=== PATIENT | female | born 1965 | race Two or more races ===

== ENCOUNTER 2024-07-13 05:57 | Day surgery (SDC) | payer OTHER, SELFPAY ==
--- NOTE | 2024-07-08 09:45 | PTCARENOTE ---
Kati @ Dr. Devine office notified of patients 06/29 glucose 213; 06/25-
--- NOTE | 2024-07-08 16:48 | PTCARENOTE ---
Abn Glucose 213 and 206, Dr. Simon notified, no requests/orders received.
[2024-07-09 13:25] VITALS: BMI 24.5
--- NOTE | 2024-07-11 18:29 | W.CON.GYNONC ---
Chief Complaint
-
endometrial cancer
History of Present Illness
58�year�old�G0�postmenopausal�woman�presented�to�Dr.�Mintah�for�postmenopausal�bleeding�initially�noted�in�Zaki�2023�and
then�again�in�May�2024.�Patient�had�not�seen�a�looseleaf binder coverer�for�over�20�years.�Apparently�back�in�Zaki�she�was�seen�in�the emergency�room�and�an�ultrasound�dated�Zaki��showed�thickened�endometrium.�Specifically�the�uterus�was�7�x�4.5
x�5.1�cm,�right�ovary�measured�1.9�cm�left�ovary�was�not�identified.�Endometrial�thickness�was�described�at�2.7�cm. Patient�underwent�a�D&C�hysteroscopy�[place]�1.�Pathology�shows�poorly�differentiated�carcinoma�favoring�dedifferentiated
carcinoma.�Tumor�has�sheets�of�high�grade�malignant�cells�with�vesicular�and�hyperchromatic�brisk�mitotic�activity.�There�is
absence�of�immunoreactivity�for�WT1�ER/GA�and�diffuse�strong�immunoreactivity�for�p53.�There�was�no�evidence�of�loss�of�nuclear expression�of�MMR�proteins.�H�ER�2�IHC�was�negative�with�a�score�1+.
Past�medical�history�primary�hypertension
Past�surgical�history�is�noncontributory
Allergies codeine,�Demerol
Medications
ondansetron�8�mg�disintegrating tablet 1 Take�1�tablet�PO�q�8�hours�prn nausea�post�chemotherapy valsartan�80�mg/hydrochlorothiazide�12.5�mg�tablet 1�p.o.�q.�day
Synthroid 100mcg po daily
Medications�include�valsartan
Family�history�noncontributory Obstetrical�history,�G0,�adopted�a�child Social�history�history�of�tobacco�use�1�pack/day�for�nearly�40�years,�quit�3�years�ago,�drinks�alcohol�'occasionally,�denies�any�drug or�marijuana�use
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
She�has�completed�3�cycles�of�chemotherapy�most�recently�Zaki�. Combination�of�Taxol�and�carbo�[place]�and�dostarlimab�was�given.�Patient�general�debo�ther�treatments�well,�2�to�3�days�of�side
effects�persist�after�each�treatment.�She�has�been�able�to�work�full�time.
Medical History
Allergies
Allergies reflect when allergies were last updated in [facility].
codeine Allergy (Verified 07/09/24 15:08)
Nausea / Vomiting
meperidine [From Demerol] Allergy (Verified 07/09/24 15:08)
Nausea / Vomiting
Physical Exam
Physical Exam
Pelvic�Examination: External�normal�labia,�urethra,�anus. Vagina:�Normal�mucosa.� Cervix:�normal�appearance,�no�discharge.� Uterus:�normal�size.�Bimanual�exam�shows�a�mobile�uterus,�there�is�no�parametrial�involvement Adnexa:�No�pelvic�mass.�
RVE:�no�masses�or�nodularity General:�Well�developed,�well�nourished�patient.�In�no�acute�distress.�Patient�appears�stated�age. Head:�Normocephalic. Eyes:�Anicteric�sclerae.�Pupils�are�equal.
Ears,�Nose,�Throat,�and�Mouth:�Normal�oral�mucosa�and�oropharynx. Neck:�Neck�is�supple.�No�cervical�masses�present.�Trachea�is�midline.�No�thyromegaly. Lungs:�Normal�respiratory�effort.�Clear�to�auscultation.�No�abnormal�breath�sounds�or�rubs.
Cardiac:�normal�rate?�regular�rhythm.�S1/S2�without�murmurs. Right�Breast:�Breast�exam�deferred. Left�Breast:�Breast�exam�deferred. Abdomen:�Bowel�sounds�active.�Abdomen�soft.�Non�tender.�Non�distended.�No�mass.�No�hepatomegaly.�No�splenomegaly.
Extremities:�No�edema.�No�cyanosis.�No�digital�clubbing.�No�discoloration. Hematologic/Lymphatic:�No�petechiae.�No�purpura.�No�cervical�lymphadenopathy. Musculoskeletal:�Strength�and�tone�are�normal.�No�muscle�wasting.
Skin:�No�abnormal�skin�lesions�noted. Neurologic:�Speech�is�fluent.�Normal�gait.�Normal�station.�Cranial�nerves�grossly�intact.
Results
-
Reason�for�Exam:�C54.1 Exam�Date:�03/26/2024�endometrial�sarcoma.
TECHNIQUE:�CT�CHEST/ABDOMEN/PELVIS�W�CONTRAST�(ax/cor/sag�reformats)�Contrast�IV�(Isovue�370):�70�ml.�Ionizing radiation�dose�reduced�via�iterative�reconstruction/FBP�blend�and�body�size�kV/mA�adjustment.�Utilization�of�standard
nomenclature�applied.�Incidental�lung�nodule�management�and�follow�up�recommendations�are�based�on�2017�Fleischner guidelines. COMPARISON:�07/05/2023�pelvic�ultrasound
FINDINGS���CHEST: LOWER�NECK:�No�adenopathy. MEDIASTINUM:�No�adenopathy�or�mass. THORACIC�AORTA:�No�dissection�or�aneurysm�(asc<4cm?�desc<3cm).�Moderate�atherosclerosis PULMONARY�ARTERIES:�No�pulmonary�emboli.
HEART:�Normal�size�(LA<4.5cm,�LV<5.5cm). CORONARY�ARTERIES:�Moderate�calcified�plaque. LUNGS:�Right�lower�lobe�pleural�based�nodule�(image�64�series�3),�measuring�8�mm,�most�likely�scarring.�Several�1�mm�nodules�in
the�superior�segment�of�right�lower�lobe�adjacent�to�the�fissure�on�images�136�through�145�of�series�9),�most�likely�inflammatory. Minimal�scarring�within�the�lingula.�Trace�emphysema FINDINGS���ABDOMEN/PELVIS:
HEPATOBILIARY:�No�suspicious�mass.�No�calcified�gallstone�or�bile�duct�dilatation. PANCREAS:�No�mass,�parenchymal�calcification,�or�ductal�dilatation. SPLEEN:�Size�is�within�normal�limits.�No�suspicious�mass.
ADRENALS:�Left�adrenal�masses�measuring�1.9�x�1.3�cm�and�1.9�x�1.3�cm,�indeterminate�right�adrenal�is�normal. KIDNEYS:�No�hydronephrosis�or�hydroureter.�No�calculi.�No�suspicious�mass.
BOWEL:�Bowel�shows�no�dilatation.�Positive�oral�contrast�extends�up�to�the�rectum.�Innumerable�diverticula�within�the�descending and�sigmoid�colon.�Appendix�is�normal.
RETRO/PERITONEUM:�Moderate�atherosclerosis�of�the�abdominal�aorta.�No�periaortic�adenopathy.�Left�pelvic�adenopathy�is described�below. PELVIC�ORGANS:
�Endometrial�mass�demonstrating�near�full�thickness�invasion�of�the�myometrium�without�definite�transmural�extension.�The�lesion measures�6�x�4�x�3.9�cm�on�CT.�This�is�consistent�with�known�endometrial�malignancy.
�Left�external�iliac�lymph�node�(image�108�of�series�4)�measuring�4�x�2.3�cm. �Left�adnexal�mass�measuring�4�x�4�x�3.3�cm�with�49�Hounsfield�unit�density�on�this�postcontrast�CT.�The�lesion�appears�to�be arising�from�the�left�ovary.
MSK:�No�fracture�or�suspicious�lesion. IMPRESSION: 1.�Endometrial�mass�measuring�6�x�4�x�3.9�cm,�consistent�with�known�malignancy,�demonstrating�near�full�thickness�involvement of�the�myometrium.�No�CT�evidence�of�transmural�extension.
2.�Left�external�iliac�lymph�node�measuring�4�x�2.3�cm,�highly�suggestive�of�metastasis. 3.�Left�adnexal�mass,�likely�arising�from�the�ovary,�measuring�4�x�4�x�3.3�cm,�suspicious�for�metastasis.
4.�Left�adrenal�masses�measuring�1.9�x�1.3�cm�and�1.9�x�1.3�cm,�indeterminate. 5.�Right�lower�lobe�8�mm�pleural�based�nodule,�most�likely�scarring.
Impression / Plan
-
This�is�a�58�year�old�woman�with�almost�no�prior�gynecologic�or�primary�care�previously.�She�has�a�new�diagnosis�of�endometrial cancer,�the�tumor�appears�to�be�histologically�poorly�differentiated,�and�specifically�dedifferentiated�carcinoma.�
She�has�received�3�cycles�of�chemotherapy�with�combination�of�Taxol�carbo�and�immunotherapy, CT�scan�was�done�yesterday,�I�reviewed�it�there�remains�a�cyst�in�the�left�ovary�but�no�obvious�evidence�of�lymphadenopathy
I�am�planning�to�proceed�with�surgery�at�this�time,�surgery�will�be�done�in�[place]�7�at[facility],�we�plan�for�robotic
assisted�total�laparoscopic�hysterectomy�bilateral�salpingectomy�oophorectomy,�and�staging�including�sentinel�lymph�nodes.�I
reviewed�the�surgery�details�with�the�patient,�she�will�undergo�preop�evaluation.�I�anticipate�that�she�can�resume�her�chemotherapy approximately�1�month�after�surgery�in�early�February
--- NOTE | 2024-07-12 13:21 | PTCARENOTE ---
Abnormal EKG reviewed by Dr. Lazo, no further action requested.
[2024-07-13] VITALS (17 sets, daily range): BP systolic 88–146; BP diastolic 49–99; BMI 24.5
[2024-07-13] MEDS: CELEBREX 200 MG PO (06:31)
[2024-07-13] MEDS: TYLENOL 1000 MG PO (06:31)
[2024-07-13] MEDS: NEURONTIN 300 MG PO (06:31)
[2024-07-13] MEDS: HEPARIN 5000 UNITS SC (06:40)
[2024-07-13] MEDS: TRANSDERM-SCOP 1 PATCH TRANSDERM (07:00)
[2024-07-13] MEDS: NORMOSOL-R/PLASMALYTE-A 1000 IV (07:00)
--- NOTE | 2024-07-13 09:47 | OR.RPT ---
Operative Report
Operative Report
Date of procedure: July 13, 2024
Preoperative diagnosis dedifferentiated endometrial cancer, status post neoadjuvant chemotherapy
Postop diagnosis: Same
Procedure: Robotic assisted total laparoscopic hysterectomy, bilateral salpingo-oophorectomy, infracolic omentectomy pelvic washings
Injection of cervix with ICG dye for mapping and identification of sentinel lymph nodes
Robotic assisted pelvic lymphadenectomy including sentinel lymph nodes
TAP block
Surgeon:Cresencio Mak
Assist: Hammad Ochoa PA-C, Zeeshan HIDALGO
Anesthesia: General Endotracheal intubation
Complications: None
Estimated blood loss: 100 cc
Specimen: Uterus cervix bilateral tubes and ovaries, pelvic washings for cytology, right and left pelvic lymph nodes, left external iliac sentinel lymph node, omentum
Findings: Uterus is at approximately 8 weeks size, right tube and ovary are normal. Left ovary is enlarged with 5 cm smooth appearing wall cyst, there is evidence of retroperitoneal lymphadenopathy in left obturator fossa otherwise lymph nodes in
the pelvis are unremarkable. I was unable to access the periaortic lymph nodes because of patient's morbid obesity, upper abdomen including right and left diaphragm liver stomach omentum right and left paracolic gutters are within normal limits.
There is evidence of fatty liver and hepatomegaly. There was no evidence of peritoneal implants
Procedure in detail: This patient was brought to the operating room for interval tumor cytoreduction after having received neoadjuvant chemotherapy for dedifferentiated endometrial cancer. She was placed in supine position, general anesthesia was
administered she was intubated without any difficulty she was placed in lithotomy position using yellowfin stirrups and prepped on the abdomen perineum and vagina Aguilar catheter was inserted under sterile conditions the patient was draped. Her arms
were wrapped with padding and placed along the patient's side and all joints were examined to ensure there is no excessive pressure on them. Timeout procedure was carried out, she received 2 g of Ancef and Flagyl. Speculum exam of the vagina was
performed cervix is unremarkable anterior lip of the cervix was grasped with single-tooth tenaculum cervical canal was easily dilated to about 7 to 8 cm, cervix was injected at 3 and 9:00 location with a total of 5 cc ICG dye injected at about 5 mm
and 10 mm stations. Uterine manipulator usability strategist type was placed with 3.0 cm JJ ring, vaginal cuff occluder was insufflated. Attention was turned abdominally. Veress needle was inserted just below the left subcostal margin and pneumoperitoneum
was created up to pressure of 15 mmHg. 8 mm X Xi robotic port was introduced 25 cm cephalad to symphysis pubis into the peritoneal cavity manage survey of the abdomen was performed with the findings noted above. Tap block was performed injecting
ropivacaine 0.5% diluted with saline 2 fingerbreadths below costal margins laterally in the upper abdomen under direct visualization and also right and left lateral abdominal wall. After this was completed 8 mm X Xi robotic ports were inserted
right and left upper quadrant and right and left lateral abdomen. Patient was placed in Trendelenburg at approximately 28 degrees. Robotic system was docked. It was very difficult to move the small bowel loops out of the pelvis throughout the
case and we struggled with this throughout. There were adhesions of the sigmoid colon to left pelvis and left paracolic gutter which were taken down which allowed some mobilization and exposure of left pelvic sidewall. Right and left round
ligaments were sealed and divided anterior and posterior leaves of the broad ligament were dissected open, paravesical and pararectal spaces were developed, the course of ureter was identified bilaterally. Avascular window was created between IP
ligaments and ureters and IP ligaments were sealed 3 times and divided. Tubes and ovaries were left attached to the uterus. Using near infrared system I examined both retroperitoneal spaces and mid left external iliac lymph node was highlighted
which was excised and submitted to pathology. I could not map the lymph node in the right pelvis even though the channels were visible. I went ahead and developed the bladder flap and advanced it below the level of the cervicovaginal junction.
Both uterine arteries were skeletonized and they were sealed and divided. I did seal and divide uterine arteries followed by parametria followed by uterosacral ligaments. Circumferential incision was made around the cervix on the JJ ring.
Specimen of uterus cervix bilateral tubes and ovaries were removed through the vagina. Next I used a vessel sealer and came across the infracolic omentum. A series of omental vessels were sealed and divided from hepatic flexure to splenic flexure.
Omentum was brought into the pelvis and was extracted through the vagina. Next I went ahead and removed the pelvic lymph nodes with lateral boundary of genitofemoral nerve, medial boundary of ureter and superior vesicle artery and then extending
it into the obturator fossa anterior to the obturator nerve. The only suspicious lymph node was at the level of left obturator fossa which was excised. The remainder of the lymph nodes were unremarkable. There was no injury to blood vessels
ureter or nerves. Good hemostasis was obtained throughout the lymph nodes were removed by way of placing in 5 mm bags and they were removed through the vagina. Following this, the vagina was examined, [id number] suture of 0 Vicryl was used to
close the right and left vaginal apices incorporating uterosacral ligament. V-Loc suture was used to close the cuff in a bidirectional manner from right to left and back to the right side in 2 layers. The pelvis was irrigated copiously there was
no evidence of bleeding. We went ahead and removed all laparoscopic ports and released the pneumoperitoneum. The skin was closed at all port sites with 4-0 Monocryl suture in a subcuticular fashion. Aguilar catheter was removed the vagina was
examined and there was no lacerations or bleeding. Patient was awakened extubated and returned back to recovery room stable awake and extubated condition. Counts of laps instruments and needle was correct x 2. I was present and scrubbed for
entire procedure as dictated above.
Disposition: To PACU stable awake extubated
== END 2024-07-13 13:15 | disposition home or self-care (01) ==
LOC: SDS 05:57
PROVIDERS: ATTENDING PHYSICIAN Obstetrics & Gynecology Gynecologic Oncology; FAMILY PHYSICIAN Nurse Practitioner Family
DX: C54.1 Malignant neoplasm of endometrium (principal); N83.201 Unspecified ovarian cyst, right side; D17.79 Benign lipomatous neoplasm of other sites; N83.8 Other noninflammatory disorders of ovary, fallopian tube and broad ligament; D25.9 Leiomyoma of uterus, unspecified; Z92.21 Personal history of antineoplastic chemotherapy
CPT/HCPCS: 58571; 88307; 88309; 36415; 86850; 86900; 86901; 88112; 88341; 88342; 88360